=== PATIENT | male | born 1955 ===

== ENCOUNTER 2019-01-23 06:03 | Emergency (ER) | payer BC, MEDICARE ==
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
[2019-01-23] MEDS ORDERED: Acetaminophen/HYDROcodone 325-7.5 MG Tab PO STA (07:44)
--- NOTE | 2019-01-23 07:49 | EDM.PDOC ---
ED HPI GENERAL MEDICAL PROBLEM - General Chief Complaint: General Stated Complaint: NECK PAIN Time Seen by Provider: 01/23/19 07:44 Source of Information: Reports: Patient - History of Present Illness INITIAL COMMENTS - FREE TEXT/NARRATIVE: HISTORY AND PHYSICAL: History of present illness: []Patient presents with neck pain, he has had chronic maintenance neck pain past does have a component of muscle spasm today right SCM and trapezius distribution has been using a TENS unit also of note he does have some cervical spine stenosis noted on CT this is increased from previous MRI in 2009 Has no fever nausea vomiting chills sweats no injury or trauma No radiculopathy or radiation of the pain day Pain is 10 out of 10 on arrival improved with previous Review of systems: As per history of present illness and below otherwise all systems reviewed and negative. Past medical history: As per history of present illness and as reviewed below otherwise noncontributory. Surgical history: As per history of present illness and as reviewed below otherwise noncontributory. Social history: No reported history of drug or alcohol abuse. Family history: As per history of present illness and as reviewed below otherwise noncontributory. Physical exam: HEENT: Atraumatic, normocephalic, pupils reactive, negative for conjunctival pallor or scleral icterus, mucous membranes moist, throat clear, neck supple, nontender, trachea midline. Increased range of motion on horizontal axis full range of motion on vertical axis Lungs: Clear to auscultation, breath sounds equal bilaterally, chest nontender. Heart: S1S2, regular, negative for clicks, rubs, or JVD. Abdomen: Soft, nondistended, nontender. Negative for masses or hepatosplenomegaly. Negative for costovertebral tenderness. Pelvis: Stable nontender. Genitourinary: Deferred. Rectal: Deferred. Extremities: Atraumatic, negative for cords or calf pain. Neurovascular unremarkable. Neuro: Awake, alert, oriented. Cranial nerves II through XII unremarkable. Cerebellum unremarkable. Motor and sensory unremarkable throughout. Exam nonfocal. Diagnostics: [CT cervical spine ] Therapeutics: [Willow 7.5 by mouth now Willow Toradol Flexeril ] Impression: [ muscle spasm Cervical stenosis noted] Definitive disposition and diagnosis as appropriate pending reevaluation and review of above. Neck Pain Score (Numeric/FACES): 10 - Related Data Allergies Allergy/AdvReac Type Severity Reaction Status Date / Time Penicillins Allergy Itching Verified 01/23/19 06:18 Home Meds: Home Meds [place] 4 - 5 tab PO DAILY 09/26/14 [History] Copper/Ginseng/Saw Palm/Zinc [Prostate Health Formula] 1 tab PO DAILY 09/26/14 [ History] Flaxseed/Omega3,6,9/Fatty Acid [Flax Seed Oil 1,300 mg Softgel] 2 tab PO DAILY 09/26/14 [History] Milk Thistle Seed Extract [Milk Thistle Extract] 1 - 2 tab PO DAILY 09/26/14 [ History] Multivitamin [Multivitamins] 1 tab PO DAILY 09/26/14 [History] amLODIPine Besylate [Norvasc] 5 mg PO DAILY 09/26/14 [History] Past Medical History HEENT History: Reports: None Cardiovascular History: Reports: Hypertension Respiratory History: Reports: None Gastrointestinal History: Reports: None Genitourinary History: Reports: None Musculoskeletal History: Reports: Back Pain, Chronic Psychiatric History: Reports: None Endocrine/Metabolic History: Reports: None - Past Surgical History Musculoskeletal Surgical History: Reports: Shoulder Surgery, Other (See Below) Social & Family History - Family History HEENT: Reports: None - Tobacco Use Smoking Status *Q: Never Smoker Second Hand Smoke Exposure: No - Caffeine Use Caffeine Use: Reports: Coffee, Tea - Recreational Drug Use Recreational Drug Use: No ED ROS GENERAL - Review of Systems Review Of Systems: See Below ED EXAM, GENERAL - Physical Exam Exam: See Below Course - Vital Signs Last Recorded V/S: Last Vital Signs Temp 97.8 F 01/23/19 06:17 Pulse 72 01/23/19 06:17 Resp 18 01/23/19 06:17 BP 167/94 H 01/23/19 06:17 Pulse Ox 96 01/23/19 06:17 Departure - Departure Time of Disposition: 07:47 Disposition: Home, Self-Care 01 Condition: Good Clinical Impression: Muscle spasm, Cervical spinal stenosis - Discharge Information Referrals: PCP,None [Primary Care Provider] - Additional Instructions: Medication as prescribed Return if symptoms persist or worsen Follow-up with Dr. Banerjee for continued evaluation of cervical stenosis (Primary care as needed The following information is given to patients seen in the emergency department who are being discharged to home. This information is to outline your options for follow-up care. We provide all patients seen in our emergency department with a follow-up referral. The need for follow-up, as well as the timing and circumstances, are variable depending upon the specifics of your emergency department visit. If you don't have a primary care physician on staff, we will provide you with a referral. We always advise you to contact your personal physician following an emergency department visit to inform them of the circumstance of the visit and for follow-up with them and/or the need for any referrals to a consulting specialist. The emergency department will also refer you to a specialist when appropriate. This referral assures that you have the opportunity for follow-up care with a specialist. All of these measure are taken in an effort to provide you with optimal care, which includes your follow-up. Under all circumstances we always encourage you to contact your private physician who remains a resource for coordinating your care. When calling for follow-up care, please make the office aware that this follow-up is from your recent emergency room visit. If for any reason you are refused follow-up, please contact the [facility] emergency department at and asked to speak to the emergency department charge nurse.
[2019-01-23 08:10] VITALS: BP 144/94
== END 2019-01-23 08:00 | disposition home or self-care (01) ==
LOC: MW.ED 06:03
DX: M48.02 Spinal stenosis, cervical region (principal); M62.838 Other muscle spasm; I10 Essential (primary) hypertension; Z88.0 Allergy status to penicillin; Z79.899 Other long term (current) drug therapy
CPT/HCPCS: 72125; 99283; A9270